=== PATIENT | male | born 1950 | race Caucasian/White ===

== ENCOUNTER 2020-09-14 08:45 | Emergency (ER) | payer MEDICARE, MEDICAID ==
[~2020-09-14] VITALS: Ht 182.9 cm; Wt 74.1 kg
[2020-09-14 09:32] LABS: BASOPHILS % (AUTO) 0.8 % (0-1); EOSINOPHILS # (AUTO) 0.1 X10'3 (0-0.9); EOSINOPHILS % (AUTO) 2.4 % (0-6); HEMOGLOBIN 13.6 g/dl (14.0-17.9); LYMPHOCYTES # (AUTO) 1.6 X10'3 (1.1-4.8); LYMPHOCYTES % (AUTO) 34.5 % (21-51); MEAN CORPUSCULAR HEMOGLOBIN 32.9 PG (27.0-31.0); MEAN CORPUSCULAR HGB CONC 33.9 g/dL (33.0-36.5); MEAN PLATELET VOLUME 8.9 FL (7.4-10.4); MONOCYTES # (AUTO) 0.7 X10'3 (0-0.9); MONOCYTES % (AUTO) 15.3 % (2-12); NEUTROPHILS # (AUTO) 2.1 X10'3 (1.8-7.7); PLATELET COUNT 140 X10'3 (140-440); RED BLOOD COUNT 4.12 X10'6 (4.70-6.10); RED CELL DISTRIBUTION WIDTH 13.4 % (11.5-14.5); WHITE BLOOD COUNT 4.5 X10'3 (4.5-11.0)
[2020-09-14 10:11] LABS: ALANINE AMINOTRANSFERASE 34 U/L (12-78); ALBUMIN 3.9 G/DL (3.4-5.0); ALKALINE PHOSPHATASE 50 IU/L (46-116); ANION GAP 8 (8-16); ASPARTATE AMINO TRANSFERASE 23 U/L (10-37); BILIRUBIN,TOTAL 0.4 MG/DL (0.1-1.0); BLOOD UREA NITROGEN 20 MG/DL (7-18); BUN/CREATININE RATIO 19.6 (5.4-32.0); CALCIUM 8.9 MG/DL (8.5-10.1); CHLORIDE 104 MMOL/L (99-107); CREATININE 1.02 MG/DL (0.60-1.10); GLUCOSE 101 MG/DL (70-104); POTASSIUM 3.9 MMOL/L (3.5-5.1); SODIUM 139 MMOL/L (135-145); TOTAL CARBON DIOXIDE 26.9 MMOL/L (24-32); TOTAL PROTEIN 7.9 G/DL (6.4-8.2); eGFR 72 ML/MIN
[2020-09-14 12:20] LABS: D-DIMER 0.22 MG/L FEU (0-0.50)
[2020-09-14] MEDS ORDERED: DEXA6TAB6 PO (12:50)
[2020-09-14] MEDS ORDERED: OMEP-271 PO (12:50)
[2020-09-14 13:27] VITALS: BP 139/83
== END 2020-09-14 13:32 | disposition home or self-care (01) ==
LOC: ER 08:47
DX: J12.9 Viral pneumonia, unspecified (principal); R07.89 Other chest pain; R05 Cough; R43.8 Other disturbances of smell and taste; Z20.822 Contact with and (suspected) exposure to COVID-19; D64.9 Anemia, unspecified; R12 Heartburn
CPT/HCPCS: 36415; 71045; 80053; 83880; 84484; 85025; 85379; 87635; 93005; 99285